=== PATIENT | female | born 1965 | race Caucasian/White ===

== ENCOUNTER → 2019-01-18 | Outpatient (CLI) | payer BC ==
[2019-01-18 08:50] VITALS: BP 111/72; PULSE 81; RESP 18; TEMP 97.1; BMI 21.4
--- NOTE | 2019-01-18 09:43 | P.HPOB ---
History of Present Illness H&P Date: 01/18/19 Chief Complaint: The patient is here for her routine gynecologic exam. This is a 53-year-old with an LMP of July 2017. The patient is here to establish with this office. Her is status post vasectomy. The patient states that has been about 10 years since her last pelvic exam. She does have occasional hot flashes which seem to come and go. They are not very bothersome. She states that drinking iesha tea seems to help. She is without gynecologic complaints. She currently does not have a primary care physician and is requesting screening blood work. Review of Systems She believes she has gained about 6 pounds over the last year. She previously was a runner but has not been able to do this because of back issues. She believes this is why she has gained some weight. She denies respiratory, cardiac, or G.I. problems. Past Medical History Additional Past Medical History / Comment(s): Chronic back issues including herniated and bulging discs. 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 History of Any Multi-Drug Resistant Organisms: None Reported Past Surgical History: Adenoidectomy, Breast Surgery Additional Past Surgical History / Comment(s): Benign breast lump removed. [place] teeth removed. VTP. Colonoscopy 2007. Past Psychological History: No Psychological Hx Reported Smoking Status: Never smoker Past Alcohol Use History: Occasional (4 per month) Past Drug Use History: None Reported Additional History: She is been since 2001. 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 - Past Family History Brother(s) Family Medical History: Cancer Additional Family Medical History / Comment(s): Prostate cancer. Sister(s) Family Medical History: Cancer Additional Family Medical History / Comment(s): Non-Hodgkin's lymphoma. Father Family Medical History: Myocardial Infarction ([place]) Mother Family Medical History: No Reported History Additional Family Medical History / Comment(s): Maternal grandmother had breast cancer. Medications and Allergies Home Medications Medication Instructions Recorded Confirmed Type Cholecalciferol (Vitamin D3) 01/18/19 History [Vitamin D3] Multivitamin [Multivitamins Adult 1 each PO 01/18/19 History Gummies] Allergies Allergy/AdvReac Type Severity Reaction Status Date / Time Anesthetics - Amide Type AdvReac Vomiting Unverified 01/18/19 08:51 Exam Vital Signs Temp Pulse Resp BP Pulse Ox 01/18/19 08:45 97.1 F L 81 18 111/72 99 Intake and Output 01/17/19 01/18/19 01/18/19 22:59 06:59 14:59 Other: Weight 56.699 kg Height 5'4", weight 125 pounds, BMI 21.5. This is a well-developed well-nourished white female who is alert and oriented times 3 in no acute distress. HEENT: Within normal limits. NECK: Supple without mass or thyromegaly. CHEST AND LUNGS: Clear to auscultation. HEART: Regular rate and rhythm. BREASTS: Are without mass or discharge. AXILLARY EXAM: Negative for adenopathy. BACK: Negative for CVA tenderness. ABDOMEN: Soft, nontender, without palpable masses. PELVIC EXAM: Normal external genitalia. Cervix and vagina appear normal with mild atrophy. The service is nulliparous and slightly stenotic. There is no unusual discharge. There is no evidence of prolapse. The uterus is midposition, nongravid size and nontender. There are no palpable adnexal masses or tenderness. RECTAL EXAM: rectovaginal exam is negative for mass or tenderness and is negative for occult blood. EXTREMITIES: Nontender. IMPRESSION: 1. 53-year-old menopausal female with normal gynecologic exam. PLAN: 1. Pap smear was performed. 2. Self breast awareness was discussed with the patient. 3. Screening mammogram will be done today. I have recommended that she do this yearly. 4. Osteoporosis prevention was discussed. I have stressed the importance of adequate calcium, vitamin D and regular exercise. Recommended amounts of calcium and vitamin D were also discussed. 5. The patient is requesting screening blood tests. The following will be drawn today: TSH, comprehensive chem panel, cholesterol, and CBC. I have recommended that she established with a primary care physician. She understands that if there are abnormalities in today's blood work, I may suggest that she follow up with a primary care physician. 6. I have recommended screening colonoscopy since it is been more than 10 years since her last one. She previously saw Dr. Johnson for this. I have recommended that she contact Dr. Johnson's office for the screening colonoscopy. 7. She was advised to return in one year for her annual well woman exam.
[2019-01-18 10:24] LABS: HCT 43.3 % (34.0-46.0); HGB 13.8 gm/dL (11.4-16.0); MCH 29.7 pg (25.0-35.0); MCHC 31.9 g/dL (31.0-37.0); MCV 93.2 fL (80.0-100.0); Mean Platelet Volume 7.8; Platelet Count 228 k/uL (150-450); RBC 4.64 m/uL (3.80-5.40); RDW 11.9 % (11.5-15.5); WBC 6.4 k/uL (3.8-10.6)
[2019-01-18 17:56] LABS: Albumin 4.9 g/dL (3.80-4.90); Albumin/Globulin Ratio 1.96 (1.60-3.17); Anion Gap 9.3 mmol/L (4.00-12.00); Calcium 9.7 mg/dL (8.7-10.3); Carbon Dioxide 27.7 mmol/L (21.6-31.8); Globulin 2.5 g/dL (1.6-3.3); Potassium 4.1 mmol/L (3.5-5.5); Total Bilirubin 0.4 mg/dL (0.3-1.2); Total Protein 7.4 g/dL (6.2-8.2)
--- NOTE | 2019-01-19 10:47 | MM ---
Reason for exam: screening (asymptomatic). Last mammogram was performed 5 years ago. History: Patient is postmenopausal and is nulliparous. Family history of breast cancer in maternal grandmother at age 45. Benign excisional biopsy of the right breast, 2007. Took hormonal contraceptives for 20 years beginning at age 17. Physical Findings: A clinical breast exam by your physician is recommended on an annual basis and results should be correlated with mammographic findings. MG Screening Mammo w CAD Bilateral CC and MLO view(s) were taken. Prior study comparison: January 06, 2014, bilateral digital screening mammo w/CAD. August 08, 2011, CAD bilateral diagnostic mammogram. The breast tissue is extremely dense which could obscure a lesion on mammography. There are benign appearing round calcifications bilaterally. There is no discrete abnormality. ASSESSMENT: Benign, BI-RAD 2 RECOMMENDATION: Routine screening mammogram of both breasts in 1 year.
== END | disposition home or self-care (01) ==
LOC: WWCWWP 08:34
PROVIDERS: ATTEND Obstetrics & Gynecology
DX: Z12.31 Encounter for screening mammogram for malignant neoplasm of breast (principal); Z00.00 Encounter for general adult medical examination without abnormal findings
CPT/HCPCS: 36415; 77067; 80053; 82465; 84439; 84443; 85027

== ENCOUNTER → 2019-04-18 | Outpatient (CLI) | payer BC ==
[2019-04-18 16:40] LABS: T4, Free (Free Thyroxine) 1.1 ng/dL (0.80-1.80)
== END | disposition home or self-care (01) ==
LOC: LABWHC1 07:55
PROVIDERS: ATTEND Internal Medicine Endocrinology, Diabetes & Metabolism
DX: E03.8 Other specified hypothyroidism (principal)
CPT/HCPCS: 36415; 84439; 84443; 86376

== ENCOUNTER → 2019-05-30 | Outpatient (CLI) | payer BC | END | disposition home or self-care (01) | LOC: LABWHC1 07:36 | PROVIDERS: ATTEND Internal Medicine Endocrinology, Diabetes & Metabolism | DX: E03.8 Other specified hypothyroidism (principal) | CPT/HCPCS: 36415; 84443 ==

== ENCOUNTER → 2019-11-29 | Outpatient (CLI) | payer BC | END | disposition home or self-care (01) | LOC: LABWHC1 10:09 | PROVIDERS: ATTEND Internal Medicine Endocrinology, Diabetes & Metabolism | DX: E03.8 Other specified hypothyroidism (principal) | CPT/HCPCS: 36415; 84443 ==

== ENCOUNTER → 2020-01-10 | Outpatient (CLI) | payer BC ==
--- NOTE | 2020-01-10 10:18 | MR ---
EXAMINATION TYPE: MR brain and iac wo/w con DATE OF EXAM: 01/10/2020 COMPARISON: None HISTORY: Tinnitus TECHNIQUE: Multiplanar, multisequence images of the brain and brainstem is performed without and with IV contras t, utilizing 5.5 mL intravenous Gadavist . FINDINGS: Diffusion weighted images demonstrate no evidence of a recent infarct or other diffusion ab normality. Midline structures demonstrate normal morphology. The craniocervical junction appears within normal limits. Post contrast images demonstrate no abnormal enhancement. The dural venous sinuses appear pa tent. Mastoid air cells are clear. Nasal septal deviation seen with no significant changes of sinusitis. Or bital structures are symmetric. Prominent blood vessel seen along the ju[place] on the left. There is cont iguous with the posterior cerebral artery and may empty into the dural venous sinus. IMPRESSION: 1. No evidence of cerebellopontine angle mass or acoustic schwannoma. 2. CTA [place] with contrast recommended to exclude tiny dural arteriovenous fistula
== END | disposition home or self-care (01) ==
LOC: RADMRIMAIN 09:08
PROVIDERS: ATTEND Otolaryngology
DX: H90.42 Sensorineural hearing loss, unilateral, left ear, with unrestricted hearing on the contralateral side (principal); H93.3X9 Disorders of unspecified acoustic nerve; H92.02 Otalgia, left ear; H93.12 Tinnitus, left ear; R42 Dizziness and giddiness
CPT/HCPCS: 70553; A9585

== ENCOUNTER → 2020-01-25 | Outpatient (CLI) | payer BC ==
--- NOTE | 2020-01-25 10:10 | CT ---
EXAMINATION TYPE: CT angio COW [place] DATE OF EXAM: 01/25/2020 9:57 AM COMPARISON: MRI brain January 10, 2020. HISTORY: Hearing Loss, Otalgia CT DLP: 1234.2 mGycm Automated exposure control for dose reduction was used. TECHNIQUE: Performed without and with IV Contrast, patient injected with 100 mL of Isovue 370. 3D reconstructed images are created on an independent workstation and reviewed.. FINDINGS: Noncontrast CT shows no acute intracranial hemorrhage or midline shift. Ventricles and sulci are with in normal limits in size. Strat[place]-white matter differentiation is maintained. Visualized sinuses are mateo ar and the globes are intact bilaterally. No suspicious opacification mastoid air cells. There is dominant right vertebral artery. Vertebral arteries are patent basilar junction. There are p atent bilateral posterior communicating arteries. There is no significant focal stenosis or aneurysma l change of the posterior circulation. Asymmetric prominent left sided peripontine vessel on MRI show s symmetric appearance on today's study with symmetric smaller branching vessels identified bilateral ly. Findings presumed benign. There is patent anterior communicating artery. There is no significant focal stenosis or aneurysmal c hange in the anterior circulation. IMPRESSION: Unremarkable study.
== END | disposition home or self-care (01) ==
LOC: RADCTMAIN 07:04
PROVIDERS: ATTEND Otolaryngology
DX: H92.02 Otalgia, left ear (principal); H90.42 Sensorineural hearing loss, unilateral, left ear, with unrestricted hearing on the contralateral side; I77.0 Arteriovenous fistula, acquired; H81.11 Benign paroxysmal vertigo, right ear
CPT/HCPCS: 70496; Q9967

== ENCOUNTER → 2022-05-21 | Outpatient (CLI) | payer BC ==
[2022-05-21 11:37] VITALS: BP 114/80; PULSE 69; RESP 17; TEMP 97.9
--- NOTE | 2022-05-21 12:59 | P.HPOB ---
History of Present Illness H&P Date: 05/21/22 Chief Complaint: The patient is here for her routine gynecologic exam and ma mmogram. This is a 56-year-old with an LMP of 2017. The patient states she has been experiencing significant discomfort with sexual intercourse. She states it feels very dry and sometimes feels like there are sharp knives in her vagina. She had an episode where she had some bleeding after intercourse several weeks ago. She has tried [id number]-[id number] lubricants without much improvement. She is otherwise without complaints. Review of Systems The patient has lost 13 pounds over the last 3 years. She attributes the weight loss to stress. She denies respiratory, cardiac, or G.I. problems. Past Medical History Past Medical History: Thyroid Disorder Additional Past Medical History / Comment(s): Hypothyroidism. Chronic back issues including herniated and bulging discs. 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 History of Any Multi-Drug Resistant Organisms: None Reported Past Surgical History: Adenoidectomy, Breast Surgery Additional Past Surgical History / Comment(s): Benign breast lump removed. [place] teeth removed. VTP. Colonoscopy 2007. Past Psychological History: No Psychological Hx Reported Smoking Status: Never smoker Past Alcohol Use History: Occasional (0-4 per month) Past Drug Use History: None Reported Additional History: She has been since 2001. 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 - Past Family History Brother(s) Family Medical History: Cancer Additional Family Medical History / Comment(s): Prostate cancer. Sister(s) Family Medical History: Cancer Additional Family Medical History / Comment(s): Non-Hodgkin's lymphoma. Father Family Medical History: Myocardial Infarction ([place]) Mother Family Medical History: No Reported History Additional Family Medical History / Comment(s): Maternal grandmother had breast cancer. Medications and Allergies Home Medications Medication Instructions Recorded Confirmed Type Cholecalciferol (Vitamin D3) 1 tab PO DAILY 01/18/19 05/21/22 History [Vitamin D3] Multivitamin [Multivitamins Adult 1 each PO DAILY 01/18/19 05/21/22 History Gummies] Thyroid, Pork [[place] Thyroid] 30 mg PO DAILY 05/21/22 05/21/22 History Allergies Allergy/AdvReac Type Severity Reaction Status Date / Time Anesthetics - Amide Type - AdvReac Vomiting Unverified 05/21/22 11:32 Select A [Anesthetics - Amide Type] Exam Vital Signs Temp Pulse Resp BP Pulse Ox 05/21/22 11:33 97.9 F 69 17 114/80 100 Intake and Output 05/20/22 05/21/22 05/21/22 22:59 06:59 14:59 Other: Weight 50.802 kg Height 5 feet 5 inches, weight 112 pounds, BMI 18.6. This is a well-developed well-nourished white female who is alert and oriented times 3 in no acute distress. HEENT: Within normal limits. NECK: Supple without mass or thyromegaly. CHEST AND LUNGS: Clear to auscultation. HEART: Regular rate and rhythm. BREASTS: Are without mass or discharge. AXILLARY EXAM: Negative for adenopathy. BACK: Negative for CVA tenderness. ABDOMEN: Soft, nontender, without palpable masses. PELVIC EXAM: Normal external genitalia with mild atrophy. Cervix and vagina appear normal with mild to moderate atrophy. The cervix appears nulliparous and is somewhat stenotic secondary to atrophy. There is no unusual discharge. There is no evidence of prolapse. The uterus is midposition, nongravid size and nonte nder. There are no palpable adnexal masses or tenderness. RECTAL EXAM: Rectovaginal exam is negative for mass or tenderness and is negative for occult blood. EXTREMITIES: Nontender. IMPRESSION: 1. 56-year-old menopausal female with normal gynecologic exam. 2. Dyspareunia secondary to vaginal dryness and genital atrophy. 3. Episode of postcoital vaginal bleeding probably secondary to #2. Post menopausal uterine bleeding is less likely. PLAN: 1. Pap smear cotest was performed. 2. Self breast awareness was discussed with the patient. We have also discussed symptoms associated with inflammatory breast cancer. 3. Screening mammogram will be done today. 4. I have recommended pelvic ultrasound to evaluate endometrial thickness to rule out endometrial neoplasia. If endometrial thickness is normal, I will prescribe estradiol vaginal cream to see if this helps with her dyspareunia and vaginal dryness. 5. Osteoporosis prevention was discussed. I have stressed the importance of adequate calcium, vitamin D and regular exercise. Recommended amounts of calcium and vitamin D were also discussed. She states her mother has osteoporosis so I have recommended starting bone density testing prior to age 60. She would like to wait until next year and do it at the time of her annual well woman visit. 6. She is due for a colonoscopy since it has been more than 10 years since her last one. She will arrange this through her PCP. 7. She was advised to return in one year for her annual well woman exam and as needed.
--- NOTE | 2022-05-23 07:26 | MM ---
Reason for Exam: Screening (asymptomatic). Last mammogram was performed 3 year(s) and 4 month(s) ago. Patient History: Menarche at age 13. Patient has no children. Postmenopausal. Hormonal Contraceptives for 20 years from age 17 until age 37. 2008, Benign Excisional Biopsy on the right side. Maternal grandmother had breast cancer, age 45. Risk Values: Chani 5 year model risk: 1.6%. NCI Lifetime model risk: 10.4%. Prior Study Comparison: 08/08/2011 Bilateral Diagnostic Mammogram, [facility]. 01/06/2014 Bilateral Screening Mammogram, [facility]. 01/18/2019 Bilateral Screening Mammogram, [facility]. Tissue Density: The breast tissue is extremely dense which could obscure a lesion on mammography. Findings: Analyzed By CAD. There is no suspicious group of microcalcifications or new suspicious mass in either breast. Benign-appearing scattered round calcifications. Overall Assessment: Benign, BI-RAD 2 Management: Screening Mammogram of both breasts in 1 year. A clinical breast exam by your physician is recommended on an annual basis and results should be correlated with mammographic findings. Electronically signed and approved by: Timothy Gillespie D.O.
== END ==
LOC: WWCWWP 11:17
PROVIDERS: ATTEND Obstetrics & Gynecology
DX: Z01.419 Encounter for gynecological examination (general) (routine) without abnormal findings (principal); Z12.31 Encounter for screening mammogram for malignant neoplasm of breast; E03.9 Hypothyroidism, unspecified; Z79.890 Hormone replacement therapy; Z78.0 Asymptomatic menopausal state; N94.10 Unspecified dyspareunia; N93.9 Abnormal uterine and vaginal bleeding, unspecified; Z88.4 Allergy status to anesthetic agent
CPT/HCPCS: 77063; 77067

== ENCOUNTER → 2022-06-04 | Outpatient (CLI) | payer BC ==
--- NOTE | 2022-06-04 17:12 | US ---
EXAMINATION TYPE: US transvaginal DATE OF EXAM: 06/04/2022 COMPARISON: NONE CLINICAL HISTORY: N95.0 Postmenopausal bleeding. spotting after intercourse for a few months TECHNIQUE: TVTransvaginal sonographic images Date of LMP: 6yrs ago EXAM MEASUREMENTS: Uterus: 6.2 x 3.5 x 2.5 cm Endometrial Stripe: 0.3 cm Right Ovary: not seen Left Ovary: 1.6 x 1.0 x 1.2 cm 1. Uterus: Anteverted filled collection with debris seen within cervical canal 2. Endometrium: wnl 3. Right Ovary: not seen due to peristalsing bowel and or atrophy 4. Left Ovary: wnl 5. Bilateral Adnexa: wnl 6. Posterior cul-de-sac: wnl Urinary bladder is visualized appears sonolucent. IMPRESSION: 1. Some mild fluid debris may be within the cervical endometrial canal. Differential diagnosis includ e hemorrhage. 2. Nonvisualization of the right ovary
== END | disposition home or self-care (01) ==
LOC: RADUSWWP 09:35
PROVIDERS: ATTEND Obstetrics & Gynecology
DX: N95.0 Postmenopausal bleeding (principal)
CPT/HCPCS: 76830

== ENCOUNTER → 2023-05-14 | Outpatient (CLI) | payer BC ==
--- NOTE | 2023-05-14 08:50 | US ---
EXAMINATION TYPE: US thyroid st tissue head/neck DATE OF EXAM: 05/14/2023 COMPARISON: NONE CLINICAL INDICATION: Female, 57 years old with history of E04.1 NONTOXIC SINGLE THYROID NODULE; Patie nt states doctor felt a nodule. GLAND SIZE: Right Lobe: 4.5 x 1.4 x 1.4 cm Overall Parenchyma: homogenous Left Lobe: 2.8 x 0.8 x 0.8 cm Overall Parenchyma: homogeneous Isthmus Thickness: 0.1 cm NODULES RIGHT: # of nodules measured on right: 0 LEFT: # of nodules measured on left: 0 ISTHMUS: # of nodules measured in the isthmus: 0 Bilateral neck scanned, no evidence of lymphadenopathy. IMPRESSION: Unremarkable thyroid ultrasound without ultrasound evidence for discrete nodule.
== END | disposition home or self-care (01) ==
LOC: RADUSWWP 08:14
PROVIDERS: ATTEND Family Medicine
DX: E04.1 Nontoxic single thyroid nodule (principal)
CPT/HCPCS: 76536

== ENCOUNTER → 2023-06-03 | Outpatient (CLI) | payer BC ==
--- NOTE | 2023-06-03 08:58 | BD ---
EXAMINATION TYPE: Axial Bone Density DATE OF EXAM: 06/03/2023 CLINICAL HISTORY: 57 years old Female. ICD-10 CODE: N95.1 DISORDER OF BONE Height: 64 in Weight: 111 lbs RISK FACTORS HISTORY OF: Family History of Osteoporosis: yes mother Active: yes Diet low in dairy products/other sources of calcium: yes Postmenopausal woman: age 50 MEDICATIONS: Thyroid Medications: yes Which medication: Synthroid How Lon month Additional Medications: calcium, vit d, vit b, EXAM MEASUREMENTS: Bone mineral densitometry was performed using the [employer] System. Bone mineral density as measured about the Lumbar spine is: ----- L1-L4(G/cm2): 0.982 T Score Values are as follows: ----- L1: -1.2 ----- L2: -1.5 ----- L3: -1.2 ----- L4: -2.6 ----- L1-L4: -1.7 Z Score Values are as follows: ----- L1: 0.3 ----- L2: 0.0 ----- L3: 0.3 ----- L4: -1.1 ----- L1-L4: -0.2 Bone mineral density baseline Bone mineral density about the R hip (g/cm2): 0.908 Bone mineral density about the L hip (g/cm2): 0.874 T Score values are as follows: -----R Neck: -0.9 -----L Neck: -1.1 -----R Total: -0.8 -----L Total: -1.1 Z Score values are as follows: -----R Neck: 0.5 -----L Neck: 0.4 -----R Total: 0.3 -----L Total: 0.1 Bone mineral density baseline FRAX%s: The graph provided illustrates a 5.5% chance for a major osteoporotic fx and a 0.3% chance fo r the hips probability for fx in 10 years time. IMPRESSION: Osteopenia (T Score between -2.5 and -1). There is slightly increased risk of fracture and the patient may be considered for treatment. Re-Screen 2-5 years. NOTE: T-SCORE=SD OF THE YOUNG ADULT MEAN.
--- NOTE | 2023-06-04 20:21 | MM ---
Reason for Exam: Screening (asymptomatic). Last screening mammogram was performed 12 month(s) ago. Patient History: Menarche at age 13. Patient has no children. Postmenopausal. Hormonal Contraceptives for 20 years from age 17 until age 37. 2008, Benign Excisional Biopsy on the right side. Maternal grandmother had breast cancer, age 45. Risk Values: Chani 5 year model risk: 1.7%. NCI Lifetime model risk: 10.2%. Prior Study Comparison: 01/06/2014 Bilateral Screening Mammogram, [facility]. 01/18/2019 Bilateral Screening Mammogram, [facility]. 05/21/2022 Bilateral MG 3D screening mammo w/cad, [facility]. Tissue Density: The breast tissue is heterogeneously dense. This may lower the sensitivity of mammography. Findings: Analyzed By CAD. Unchanged regional microcalcifications posterior upper outer quadrant left breast. There is no suspicious group of microcalcifications or new suspicious mass in either breast. Overall Assessment: Benign, BI-RAD 2 Management: Screening Mammogram of both breasts in 1 year. . Patient should continue monthly self-breast exams. A clinical breast exam by your physician is recommended on an annual basis. This exam should not preclude additional follow-up of suspicious palpable abnormalities. Note on Chani scores and lifetime risk: 1. A Chani score greater than 3% is considered moderate risk. If this is the case, consider specialist referral to assess eligibility for a risk reducing agent. 2. If overall lifetime risk for the development of breast cancer is 20% or higher, the patient may qualify for future screening with alternating mammogram and breast MRI. Electronically signed and approved by: Manuel Wade DO
== END | disposition home or self-care (01) ==
LOC: RADMAMWWP 07:18
PROVIDERS: ATTEND Family Medicine
DX: Z12.31 Encounter for screening mammogram for malignant neoplasm of breast (principal); M85.89 Other specified disorders of bone density and structure, multiple sites; Z78.0 Asymptomatic menopausal state; Z80.3 Family history of malignant neoplasm of breast
CPT/HCPCS: 77063; 77067; 77080

== ENCOUNTER 2023-08-25 09:54 | Day surgery (SDC) | payer BC ==
[2023-08-20 10:27] VITALS: BMI 20.2
[~2023-08-25 09:54] MED LIST: LACTATED RINGERS 1,000 ML IV SCH
[2023-08-25 10:38] VITALS: TEMP 97.6
[2023-08-25] MEDS ORDERED: LIDOCAINE 1% INJ 10MG/ML (20 ML MDV) ONE (10:58)
[2023-08-25] MEDS ORDERED: PROPOFOL 10 MG/ML 20 ML VIAL IV ONE (10:58)
[2023-08-25] MEDS ORDERED: ONDANSETRON 4 MG/2 ML VIAL ONE (10:58)
--- NOTE | 2023-08-25 11:00 | P.GSHP ---
History of Present Illness H&P Date: 08/25/23 Chief Complaint: Colon cancer screening 57-year-old female here for colonoscopy. Last colonoscopy 15 years ago. No bowel complaints. No family history of colon cancer. Past Medical History Past Medical History: Thyroid Disorder Additional Past Medical History / Comment(s): Hypothyroidism. Chronic back issues including herniated and bulging discs. 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 blood clot to brain left side watching it History of Any Multi-Drug Resistant Organisms: None Reported Past Surgical History: Adenoidectomy, Breast Surgery Additional Past Surgical History / Comment(s): Benign breast lump removed. [place] teeth removed. VTP. Colonoscopy 2007. Past Anesthesia/Blood Transfusion Reactions: Previous Problems w/ Anesthesia, Postoperative Nausea & Vomiting (PONV) Additional Past Anesthesia/Blood Transfusion Reaction / Comment(s): no blood transfusion Smoking Status: Never smoker - Past Family History Brother(s) Family Medical History: Cancer Additional Family Medical History / Comment(s): Prostate cancer. Sister(s) Family Medical History: Cancer Additional Family Medical History / Comment(s): Non-Hodgkin's lymphoma. Father Family Medical History: Myocardial Infarction ([place]) Mother Family Medical History: No Reported History Additional Family Medical History / Comment(s): Maternal grandmother had breast cancer. Medications and Allergies Home Medications Medication Instructions Recorded Confirmed Type Cholecalciferol (Vitamin D3) 1 tab PO DAILY 01/18/19 08/25/23 History [Vitamin D3] Multivitamin [Multivitamins Adult 1 each PO DAILY 01/18/19 08/25/23 History Gummies] Thyroid, Pork [[place] Thyroid] 25 mg PO DAILY 05/21/22 08/25/23 History Estrogens, Conjugated Cream 1 gram VAGINAL DIRECTED #42.5 gm 06/10/22 08/25/23 Rx [Premarin Vaginal Cream] Allergies Allergy/AdvReac Type Severity Reaction Status Date / Time Anesthetics - Amide Type - AdvReac Vomiting Verified 08/25/23 10:24 Select A [Anesthetics - Amide Type] Surgical - Exam Vital Signs Temp Pulse Resp BP Pulse Ox 97.6 F 77 18 130/81 100 08/25/23 10:23 08/25/23 10:23 08/25/23 10:23 08/25/23 10:23 08/25/23 10:23 Physical exam: General: Well-developed, well-nourished HEENT: Normocephalic, sclerae nonicteric Abdomen: Nontender, nondistended Extremities: No edema Neuro: Alert and oriented Assessment and Plan (1) Colon cancer screening Narrative/Plan: Will proceed with colonoscopy at this time Current Visit: Yes Status: Acute Code(s): Z12.11 - ENCOUNTER FOR SCREENING FOR MALIGNANT NEOPLASM OF COLON SNOMED Code(s): 108281845
--- NOTE | 2023-08-25 11:25 | P.PCN ---
Date of Procedure: 08/25/23 Procedure(s) Performed: PREOPERATIVE DIAGNOSIS: Colon cancer screening POSTOPERATIVE DIAGNOSIS: Small colon polyps PROCEDURE: Colonoscopy with snare polypectomy ANESTHESIA: MAC SURGEON: Wiliam Johnson M.D. SPECIMENS: Cecal polyp ENDOSCOPIC PROCEDURE: The patient was placed on the endoscopy table in the left decubitus position. The Olympus colonoscope was inserted into the anus and passed under direct visualization to the base of the cecum. The appendiceal orifice was visualized. From that point the scope was slowly withdrawn inspecting all surfaces carefully. There was a small polyp seen on the cecal valve. This was removed using the snare without cautery technique. The remainder of the ascending transverse colon appeared normal. In the descending colon another small polyp was seen and removed in a similar fashion. This was so small that no specimen was identified. The remainder of the descending sigmoid and rectum appeared normal. There was no visible diverticulosis. Digital rectal examination was normal. The patient was taken to the recovery room in stable condition per anesthesia guidelines. RECOMMENDATIONS: Await biopsy results. Repeat colonoscopy in 5-7 years.
[2023-08-25 11:38] VITALS: RESP 16
[2023-08-25 12:16] VITALS: BP 128/73; PULSE 72
== END 2023-08-25 12:20 | disposition home or self-care (01) ==
LOC: ORWHC2ENDO 09:54
PROVIDERS: ATTEND Surgery
DX: Z12.11 Encounter for screening for malignant neoplasm of colon (principal); K63.5 Polyp of colon; E07.9 Disorder of thyroid, unspecified; Z88.4 Allergy status to anesthetic agent; Z79.890 Hormone replacement therapy; Z98.890 Other specified postprocedural states
CPT/HCPCS: 88305; 45385; J2405; J2001; J2704

== ENCOUNTER → 2024-09-13 | Outpatient (CLI) | payer BC ==
[2024-09-13 10:48] VITALS: BP 112/79; PULSE 69; RESP 16; TEMP 97.8
--- NOTE | 2024-09-13 11:50 | P.HPOB ---
History of Present Illness H&P Date: 09/13/24 Chief Complaint: The patient is here for her routine gynecologic exam and ma mmogram. This is a 58-year-old -0-1-0 with an LMP of 2017. She is without gynecologic complaints and denies any postmenopausal bleeding. She states she briefly used Premarin vaginal cream, but has done better with KY liquid beads as a lubricant. Review of Systems The patient's weight has been stable over the last year. She denies respiratory, cardiac, or G.I. problems. Past Medical History Past Medical History: Thyroid Disorder Additional Past Medical History / Comment(s): Hypothyroidism. Chronic back issues including herniated and bulging discs. Osteopenia. PAST DIRECTOR WEB HISTORY: She has no history of STDs. History of Any Multi-Drug Resistant Organisms: None Reported Past Surgical History: Adenoidectomy, Breast Surgery Additional Past Surgical History / Comment(s): Benign breast lump removed. [place] teeth removed. VTP. Colonoscopy 2022(next after 5-7yr). Past Psychological History: No Psychological Hx Reported Smoking Status: Never smoker Past Alcohol Use History: Occasional (0 to 1/month.) Past Drug Use History: None Reported Additional History: She has been since 2001. 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 Her father is currently living with her. - Past Family History Brother(s) Family Medical History: Cancer Additional Family Medical History / Comment(s): Prostate cancer. Sister(s) Family Medical History: Cancer Additional Family Medical History / Comment(s): Non-Hodgkin's lymphoma. Father Family Medical History: Dementia, Myocardial Infarction (HI) Mother Family Medical History: No Reported History Additional Family Medical History / Comment(s): Maternal grandmother had breast cancer. Medications and Allergies Home Medications Medication Instructions Recorded Confirmed Type Cholecalciferol (Vitamin D3) 1 tab PO DAILY 01/18/19 09/13/24 History [Vitamin D3] Multivitamin [Multivitamins Adult 1 each PO DAILY 01/18/19 09/13/24 History Gummies] Thyroid, Pork [[place] Thyroid] 25 mg PO DAILY 05/21/22 09/13/24 History Calcium Carbonate [Calcium] 1 cap PO DAILY 09/13/24 09/13/24 History Vitamin B Complex 1 cap PO DAILY 09/13/24 09/13/24 History Allergies Allergy/AdvReac Type Severity Reaction Status Date / Time Anesthetics - Amide Type - AdvReac Vomiting Verified 09/13/24 10:45 Select A [Anesthetics - Amide Type] Exam Vital Signs Temp Pulse Resp BP Pulse Ox 09/13/24 10:46 97.8 F 69 16 112/79 100 Intake and Output 09/12/24 09/13/24 09/13/24 22:59 06:59 14:59 Other: Weight 51.71 kg Height 5 feet 4 inches, weight 114 pounds, BMI 19.6. This is a well-developed well-nourished white female who is alert and oriented times 3 in no acute distress. HEENT: Within normal limits. NECK: Supple without mass or thyromegaly. CHEST AND LUNGS: Clear to auscultation. HEART: Regular rate and rhythm. BREASTS: Are without mass or discharge. AXILLARY EXAM: Negative for adenopathy. BACK: Negative for CVA tenderness. ABDOMEN: Soft, nontender, without palpable masses. PELVIC EXAM: Normal external genitalia with mild atrophy. Cervix and vagina appear normal with mild to moderate atrophy. There is no unusual discharge. There is no evidence of prolapse. The uterus is midposition, nongravid size and nontender. There are no palpable adnexal masses or tenderness. RECTAL EXAM: Rectovaginal exam is negative for mass or tenderness and is negative for occult blood. EXTREMITIES: Nontender. IMPRESSION: 1. 58-year-old menopausal female with normal gynecologic exam. 2. History of osteopenia. PLAN: 1. Pap smear was deferred since she had a negative Pap smear cotest on 05/21/2022 2. Self breast awareness was discussed with the patient. We have also discussed symptoms associated with inflammatory breast cancer. 3. Screening mammogram will be done today. 4. Osteoporosis prevention was discussed. I have stressed the importance of adequate calcium, vitamin D and regular exercise. Recommended amounts of calcium and vitamin D were also discussed. We will plan on repeating her bone density test in 1 year. 5. She was advised to return in one year for her annual well woman exam.
--- NOTE | 2024-09-14 14:44 | MM ---
Reason for Exam: Screening (asymptomatic). Last mammogram was performed 1 year(s) and 4 month(s) ago. Patient History: Menarche at age 13. Patient has no children. Postmenopausal. Hormonal Contraceptives for 20 years from age 17 until age 37. 2008, Benign Excisional Biopsy on the right side. Maternal grandmother had breast cancer, age 45. Risk Values: Chani 5 year model risk: 1.8%. NCI Lifetime model risk: 10.0%. Prior Study Comparison: 01/18/2019 Bilateral Screening Mammogram, [facility]. 05/21/2022 Bilateral MG 3D screening mammo w/cad, [facility]. 06/03/2023 Bilateral MG 3D screening mammo w/cad, [facility]. Tissue Density: The breasts are extremely dense, which lowers the sensitivity of mammography. Findings: Analyzed By CAD. The pattern is symmetrical. No significant interval change is evident. Scattered benign punctate calcifications are present bilaterally. No suspicious groups of microcalcifications, spiculated or lobular masses, architectural distortion or other secondary signs of malignancy are mammographically apparent. Overall Assessment: Benign, BI-RAD 2 Management: Screening Mammogram of both breasts in 1 year. A negative mammogram report should not preclude additional follow up of suspicious palpable abnormalities. Patient should continue monthly self breast exam. A clinical breast exam by your physician is recommended on an annual basis and results should be correlated with mammographic findings. Note on Chani scores and lifetime risk: 1. A Chani score greater than 3% is considered moderate risk. If this is the case, consider specialist referral to assess eligibility for a risk reducing agent. 2. If overall lifetime risk for the development of breast cancer is 20% or higher, the patient may qualify for future screening with alternating mammogram and breast MRI. [facility], , 09/14/2024 2:40 PM. Electronically signed and approved by: Yogesh Caldera D.O. Radiologis
== END ==
LOC: WWCWWP 10:38
PROVIDERS: ATTEND Obstetrics & Gynecology
DX: Z12.31 Encounter for screening mammogram for malignant neoplasm of breast (principal); R92.8 Other abnormal and inconclusive findings on diagnostic imaging of breast; R92.343 Mammographic extreme density, bilateral breasts; M85.80 Other specified disorders of bone density and structure, unspecified site; Z78.0 Asymptomatic menopausal state; Z80.3 Family history of malignant neoplasm of breast; Z88.4 Allergy status to anesthetic agent
CPT/HCPCS: 77063; 77067